=== PATIENT | male | born 1970 | race Two or more races ===

== ENCOUNTER 2020-10-20 14:07 | Emergency (ER) | payer OTHER ==
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
[2020-10-20] MEDS ORDERED: Ibuprofen 600 MG Tab PO ONE (15:19)
== END 2020-10-20 17:05 | disposition home or self-care (01) ==
LOC: JP.ED 14:07
DX: R07.89 Other chest pain (principal); V49.10XA Passenger injured in collision with unspecified motor vehicles in nontraffic accident, initial encounter
CPT/HCPCS: 99284; A9270